=== PATIENT | female | born 1970 | race African-American/Black ===

== ENCOUNTER 2016-11-22 17:36 | Emergency (ER) | payer BC, OTHER ==
[~2016-11-22] VITALS: Ht 177.8 cm; Wt 134.0 kg
[2016-11-22] MEDS ORDERED: ATEN-42 PO (18:08)
[2016-11-22] MEDS ORDERED: HYDR25TA PO (18:08)
[2016-11-22] MEDS ORDERED: KETOROLAC 30MG/ML VIAL IM ONE (21:45)
[2016-11-22 22:41] VITALS: BP 138/85
== END 2016-11-22 22:44 | disposition home or self-care (01) ==
LOC: ER 18:55
DX: M54.2 Cervicalgia (principal); M54.6 Pain in thoracic spine; M54.5 Low back pain; I10 Essential (primary) hypertension; Z88.0 Allergy status to penicillin; Z98.890 Other specified postprocedural states; Z98.51 Tubal ligation status; V43.92XA Unspecified car occupant injured in collision with other type car in traffic accident, initial encounter; Y93.89 Activity, other specified; Y99.8 Other external cause status; Y92.89 Other specified places as the place of occurrence of the external cause
CPT/HCPCS: 96372; 99283; J1885

== ENCOUNTER 2020-12-30 21:48 | Emergency (ER) | payer BC ==
[~2020-12-30] VITALS: Ht 177.8 cm; Wt 137.0 kg
[~2020-12-30 21:48] MED LIST: ATEN-42 PO; HYDR25TA PO
[2020-12-30 21:58] VITALS: BP 168/98
== END 2020-12-31 00:41 | disposition home or self-care (01) ==
LOC: ER 22:07
DX: E11.649 Type 2 diabetes mellitus with hypoglycemia without coma (principal); I10 Essential (primary) hypertension; Z88.0 Allergy status to penicillin; Z98.51 Tubal ligation status
CPT/HCPCS: 82962; 99281